=== PATIENT | male | born 1965 | race Caucasian/White ===

== ENCOUNTER → 2017-11-25 | Outpatient (CLI) | payer OTHER ==
[~2017-11-25] MED LIST: AMIT10 PO; ESCI10 PO; HYDACE7.5 PO; NAPR500 PO
== END | disposition home or self-care (01) ==
LOC: LAB 13:44 → LAB SHORT 13:44
DX: L02.91 Cutaneous abscess, unspecified (principal)
CPT/HCPCS: 87070; 87075; 87077; 87147; 87186; 87205

== ENCOUNTER 2020-04-04 19:12 | Observation (INO) | payer OTHER ==
[~2020-04-04] VITALS: Ht 182.9 cm; Wt 121.6 kg
[~2020-04-04 19:12] MED LIST changes: +ATOR20 PO; +MONT10T PO
[2020-04-04 19:53] LABS: BASOPHILS ABSOLUTE AUTO 0.08 K/mm3 (0.00-0.23); BASOPHILS PERCENT AUTO 1 % (0-2); EOSINOPHILS ABSOLUTE AUTO 0.38 K/mm3 (0.00-0.68); EOSINOPHILS PERCENT AUTO 4 % (0-6); Hemoglobin 9.3 g/dL (13.5-17.5); IMMATURE GRAN ABSOLUTE AUTO 0.13 K/mm3 (0.00-0.10); IMMATURE GRAN PERCENT AUTO 1 % (0-1); LYMPHOCYTES ABSOLUTE AUTO 2.18 K/mm3 (0.84-5.20); LYMPHOCYTES PERCENT AUTO 20 % (21-46); MONOCYTES PERCENT AUTO 9 % (4-13); Mean Corpuscular HGB 27.7 pg (26.0-34.0); Mean Corpuscular Volume 89 fL (80-100); Mean Platelet Volume 9.7 fL (9.1-12.4); NEUTROPHILS PERCENT AUTO 65 % (41-73); Platelet Count 513 K/mm3 (150-400); RDW Coefficient Variation 13.2 % (11.7-14.2); RDW Standard Deviation 43.5 fL (35.1-46.3); Red Blood Cell Count 3.36 M/mm3 (4.30-5.90); White Blood Cell Count 10.87 K/mm3 (4.00-11.30)
[2020-04-04 20:21] LABS: Troponin I 0.024 ng/mL (0.000-0.040)
[2020-04-04 20:29] LABS: Alanine Aminotransfer (ALT/SGP 72 U/L (12-78); Albumin, Blood 3.1 g/dL (3.4-5.0); Albumin/Globulin Ratio 0.7 (0.8-1.8); Alk Phos 116 U/L (50-136); Anion Gap 6 mmol/L (6-16); Aspartate Aminotrans (AST/SGOT 31 U/L (12-37); Bilirubin, Total 0.3 mg/dL (0.1-1.0); Blood Urea Nitrogen 14 mg/dL (8-24); Bun/Creatinine Ratio 17.4 (12.0-20.0); CO2, Blood 28 mmol/L (21-32); Calcium, Blood 9.5 mg/dL (8.5-10.1); Chloride, Blood 100 mmol/L (98-108); Globulin, Blood 4.2 g/dL (2.2-4.0); Glomerular Filtration Rate >60 (60-); Glucose, Blood 100 mg/dL (70-99); Potassium, Blood 4.3 mmol/L (3.5-5.5); Sodium, Blood 134 mmol/L (136-145); Total Protein, Blood 7.3 g/dL (6.4-8.2)
[2020-04-05 00:25] LABS: Troponin I 0.021 ng/mL (0.000-0.040)
--- NOTE | 2020-04-05 05:49 | NUR ---
SHIFT SUMMARY PT ARRIVED TO THE UNIT AROUND 0020, DENIED ANY CHEST PAIN, STATED PAIN AT INCISION SITE FROM PREVIOUS OPEN HEART PROCEDURE 2 WEEKS AGO. BP AND HR STABLE ON ARRIVAL AND T/O SHIFT. ON 2LPM VIA NC, O2 SATS IN THE MID 90'S. STATED NOT HAVING SOB, NO SOB WHEN TRANSFERING FROM ER BED TO UNIT BED. PT ABLE TO AMBULATE, STAND-BY ASSIST. HR MONITORING SHOWED SINUS RHYTHM WITH A BBB. LUNGS CLEAR AND MILDLY DIMINISHED IN THE BASES. PT STATED BEING COMFORTABLE T/O THE NIGHT. WILL CONTINUE TO MONITOR UNTIL SHIFT CHANGE.
--- NOTE | 2020-04-05 08:00 | NUR ---
PT LAYING IN BED AWAKE A/OX3, PLEASANT AND COOPERATIVE WITH CARE, FOLLOWS COMMANDS WELL, STATES HE SLEPT PRETTY WELL LAST NIGHT, IS HAVING SOME SURGICAL INCISION PAIN IN HIS CHEST BUT DOESN'T WANT FENTANYL, DIDNT DO ANYTHING FOR HIM, WILL TALK TO ABOUT GETTING HIM SOMETHING PO, LUNGS ARE CLEAR T/O, RESP EVEN AND UNLABORED, NO COUGH NOTED, HRR, TELE IN PLACE RUNNING SR WITH BBB, SEE STRIP, NO EDEMA NOTED, PPP+2, CAP REFILL <3SEC, VS STABLE, AFEBRILE, IV SITE IS CLEAR AND PATENT, BTX4, ABD FLAT SOFT NONTENDER, VOIDS WITHOUT DIFF, SKIN C/W/D, MAEW, JACINTO, CALL LIGHT IN REACH.
[2020-04-05 09:14] LABS: BASOPHILS ABSOLUTE AUTO 0.08 K/mm3 (0.00-0.23); BASOPHILS PERCENT AUTO 1 % (0-2); EOSINOPHILS ABSOLUTE AUTO 0.49 K/mm3 (0.00-0.68); EOSINOPHILS PERCENT AUTO 5 % (0-6); Hemoglobin 8.8 g/dL (13.5-17.5); IMMATURE GRAN ABSOLUTE AUTO 0.11 K/mm3 (0.00-0.10); IMMATURE GRAN PERCENT AUTO 1 % (0-1); LYMPHOCYTES ABSOLUTE AUTO 1.47 K/mm3 (0.84-5.20); LYMPHOCYTES PERCENT AUTO 16 % (21-46); MONOCYTES ABSOLUTE AUTO 0.87 K/mm3 (0.16-1.47); MONOCYTES PERCENT AUTO 9 % (4-13); Mean Corpuscular HGB 27.5 pg (26.0-34.0); Mean Corpuscular HGB Conc 30.3 g/dL (31.5-36.5); Mean Corpuscular Volume 91 fL (80-100); Mean Platelet Volume 9.7 fL (9.1-12.4); NEUTROPHILS ABSOLUTE AUTO 6.46 K/mm3 (1.96-9.15); NEUTROPHILS PERCENT AUTO 68 % (41-73); Platelet Count 407 K/mm3 (150-400); RDW Coefficient Variation 13.2 % (11.7-14.2); White Blood Cell Count 9.48 K/mm3 (4.00-11.30)
[2020-04-05 09:39] LABS: Alanine Aminotransfer (ALT/SGP 62 U/L (12-78); Albumin, Blood 2.7 g/dL (3.4-5.0); Albumin/Globulin Ratio 0.7 (0.8-1.8); Alk Phos 104 U/L (50-136); Anion Gap 5 mmol/L (6-16); Aspartate Aminotrans (AST/SGOT 17 U/L (12-37); Bilirubin, Total 0.5 mg/dL (0.1-1.0); Blood Urea Nitrogen 13 mg/dL (8-24); Bun/Creatinine Ratio 15.8 (12.0-20.0); CO2, Blood 31 mmol/L (21-32); CPK Creatine Kinase 21 U/L (39-308); Calcium, Blood 9.2 mg/dL (8.5-10.1); Chloride, Blood 103 mmol/L (98-108); Creatinine, Blood 0.82 mg/dL (0.60-1.20); Glomerular Filtration Rate >60 (60-); Glucose, Blood 118 mg/dL (70-99); Potassium, Blood 4.3 mmol/L (3.5-5.5); Sodium, Blood 139 mmol/L (136-145); Total Protein, Blood 6.7 g/dL (6.4-8.2)
[2020-04-05 09:41] LABS: Troponin I 0.022 ng/mL (0.000-0.040)
[2020-04-05 12:51] LABS: Hematocrit 29.1 % (37.0-53.0); Hemoglobin 9.2 g/dL (13.5-17.5)
--- NOTE | 2020-04-05 12:53 | NUR ---
CAROLINA IS DOING WELL, NO COMPLAINTS. WAS CONSULTED AND SAW HIM. NO CHANGES AT THIS TIME. CALL LIGHT IN REACH.
[2020-04-05 13:11] LABS: Percent Saturation 11.1 % (20.0-50.0)
--- NOTE | 2020-04-05 14:13 | NUR ---
Echocardiogram completed.
--- NOTE | 2020-04-05 18:13 | NUR ---
NO ACUTE CHANGES THIS SHIFT, HE DOES REPORT INSICION PAIN, WAS GIVEN TWO PERCOCETS TODAY FOR THAT, HE REPORTS NOT HELPING THAT MUCH. WILL CONTINUE TO MONITOR, CALL LIGHT IN REACH.
[2020-04-05] MEDS ORDERED: METO25 PO (18:28)
[2020-04-05] MEDS ORDERED: METF500 PO (18:28)
[2020-04-05] MEDS ORDERED: ASPI81CH PO (18:29)
[2020-04-06 04:32] LABS: Hematocrit 29.4 % (37.0-53.0); Hemoglobin 9.1 g/dL (13.5-17.5)
--- NOTE | 2020-04-06 04:49 | NUR ---
SHIFT SUMMARY PT WAS ASKING QUESTIONS AND EDUCATED ABOUT HIS CARDIAC CONDTION. HE STATED HAVING PAIN IN HIS UPPER CHEST AROUND SURGICAL SITE, STATING AN INCREASED PAIN FROM ECHO EARLIER IN THE DAY. PAIN WAS MANAGED WITH PERSCRIBED PRN MEDICATIONS. PT ON 2LPM VIA NC, O2 SATS IN THE HIGH 90'S WITH NO DROP WHEN AMBULATING. HR AND BP STABLE T/O SHIFT. WILL CONTINUE TO MONITOR UNTIL SHIFT CHANGE.
[2020-04-06 04:50] LABS: Albumin, Blood 2.8 g/dL (3.4-5.0); Anion Gap 5 mmol/L (6-16); Blood Urea Nitrogen 11 mg/dL (8-24); Bun/Creatinine Ratio 14.6 (12.0-20.0); CO2, Blood 34 mmol/L (21-32); Calcium, Blood 9.1 mg/dL (8.5-10.1); Chloride, Blood 98 mmol/L (98-108); Creatinine, Blood 0.76 mg/dL (0.60-1.20); Glomerular Filtration Rate >60 (60-); Glucose, Blood 101 mg/dL (70-99); Phosphorus, Blood 3.7 mg/dL (2.5-4.9); Potassium, Blood 3.6 mmol/L (3.5-5.5); Sodium, Blood 137 mmol/L (136-145)
[2020-04-06] MEDS ORDERED: ACET325 PO (11:46)
[2020-04-06] MEDS ORDERED: FURO20 PO (11:49)
--- NOTE | 2020-04-06 13:39 | NUR ---
IV REMOVED, DISCHARGE PAPERWORK REVIEWED WITH PT. 02 DC'D THIS AM. 98% ON RA.
--- NOTE | 2020-04-06 14:31 | NUR ---
SPOKE WITH PCP'S OFFICE TO ADVISE THAT PT HAD HOME O2 EVAL ORDERED THAT WAS NOT COMPELTE PT LEFT PRIOR TO HAVING DONE. PCP WILL FOLLOW UP.
== END 2020-04-06 12:42 | disposition home or self-care (01) ==
LOC: ER 19:12 → PCU 19:13
PROVIDERS: Emergency Medicine; Family Medicine; ADMIT Internal Medicine
DX: I11.0 Hypertensive heart disease with heart failure (principal); I50.31 Acute diastolic (congestive) heart failure; T82.858A Stenosis of other vascular prosthetic devices, implants and grafts, initial encounter; J96.01 Acute respiratory failure with hypoxia; I44.0 Atrioventricular block, first degree; I44.7 Left bundle-branch block, unspecified; I31.3 Pericardial effusion (noninflammatory); I97.190 Other postprocedural cardiac functional disturbances following cardiac surgery; I48.91 Unspecified atrial fibrillation; I25.10 Atherosclerotic heart disease of native coronary artery without angina pectoris; E78.5 Hyperlipidemia, unspecified; E78.1 Pure hyperglyceridemia; R91.8 Other nonspecific abnormal finding of lung field; E04.1 Nontoxic single thyroid nodule; D64.9 Anemia, unspecified; G89.18 Other acute postprocedural pain; R07.89 Other chest pain; G89.29 Other chronic pain; M54.5 Low back pain; E66.9 Obesity, unspecified; E11.9 Type 2 diabetes mellitus without complications; F41.8 Other specified anxiety disorders; Q25.0 Patent ductus arteriosus; I08.0 Rheumatic disorders of both mitral and aortic valves; Z87.891 Personal history of nicotine dependence; Z79.899 Other long term (current) drug therapy; Z79.51 Long term (current) use of inhaled steroids; Z98.61 Coronary angioplasty status; Z95.2 Presence of prosthetic heart valve; Z68.36 Body mass index [BMI] 36.0-36.9, adult; Y84.0 Cardiac catheterization as the cause of abnormal reaction of the patient, or of later complication, without mention of misadventure at the time of the procedure; Y83.2 Surgical operation with anastomosis, bypass or graft as the cause of abnormal reaction of the patient, or of later complication, without mention of misadventure at the time of the procedure
CPT/HCPCS: 36415; 71046; 80053; 80069; 82550; 82607; 82728; 82746; 83540; 83550; 83880; 84484; 85014; 85018; 85025; 93005; 93010; 93306; 96365; 96372; 96374; 96375; 96376; 99285-25; A9270; G0378; J1650; J1940; J1956; J3010; U0003

== ENCOUNTER 2021-05-25 20:01 | Inpatient (IN) | payer OTHER ==
[~2021-05-25] VITALS: Ht 182.9 cm; Wt 109.7 kg
[~2021-05-25 20:01] MED LIST changes: +ACET325 PO; +ASPI81CH PO; +FURO20 PO; +METF500 PO; +METO25 PO
[2021-05-25 20:25] LABS: BASOPHILS ABSOLUTE AUTO 0.06 K/mm3 (0.00-0.23); BASOPHILS PERCENT AUTO 1 % (0-2); EOSINOPHILS ABSOLUTE AUTO 0.34 K/mm3 (0.00-0.68); EOSINOPHILS PERCENT AUTO 4 % (0-6); Hematocrit 44.3 % (37.0-53.0); Hemoglobin 14.2 g/dL (13.5-17.5); IMMATURE GRAN ABSOLUTE AUTO 0.19 K/mm3 (0.00-0.10); IMMATURE GRAN PERCENT AUTO 3 % (0-1); LYMPHOCYTES ABSOLUTE AUTO 3.33 K/mm3 (0.84-5.20); LYMPHOCYTES PERCENT AUTO 43 % (21-46); MONOCYTES ABSOLUTE AUTO 0.41 K/mm3 (0.16-1.47); MONOCYTES PERCENT AUTO 5 % (4-13); Mean Corpuscular HGB 28.8 pg (26.0-34.0); Mean Corpuscular HGB Conc 32.1 g/dL (31.5-36.5); Mean Corpuscular Volume 90 fL (80-100); Mean Platelet Volume 10.2 fL (9.1-12.4); NEUTROPHILS ABSOLUTE AUTO 3.34 K/mm3 (1.96-9.15); NEUTROPHILS PERCENT AUTO 44 % (41-73); Platelet Count 253 K/mm3 (150-400); RDW Coefficient Variation 12.3 % (11.7-14.2); RDW Standard Deviation 40.1 fL (35.1-46.3); Red Blood Cell Count 4.93 M/mm3 (4.30-5.90); White Blood Cell Count 7.67 K/mm3 (4.00-11.30)
[2021-05-25 20:36] LABS: Alanine Aminotransfer (ALT/SGP 47 U/L (12-78); Albumin, Blood 3.1 g/dL (3.4-5.0); Albumin/Globulin Ratio 0.9 (0.8-1.8); Alk Phos 76 U/L (50-136); Anion Gap 9 mmol/L (6-16); Aspartate Aminotrans (AST/SGOT 51 U/L (12-37); Bilirubin, Total 0.3 mg/dL (0.1-1.0); Blood Urea Nitrogen 13 mg/dL (8-24); CO2, Blood 22 mmol/L (21-32); Calcium, Blood 7.7 mg/dL (8.5-10.1); Chloride, Blood 108 mmol/L (98-108); Creatinine, Blood 0.86 mg/dL (0.60-1.20); Ethanol (Alcohol), Blood, Med <3 mg/dL; Globulin, Blood 3.3 g/dL (2.2-4.0); Glomerular Filtration Rate >60 (60-); Glucose, Blood 209 mg/dL (70-99); Potassium, Blood 3.6 mmol/L (3.5-5.5); Sodium, Blood 139 mmol/L (136-145); Total Protein, Blood 6.4 g/dL (6.4-8.2)
[2021-05-25] MEDS ORDERED: OXYC5 PO (21:21)
[2021-05-25] MEDS ORDERED: METPRE4DP PO (21:22)
[2021-05-25] MEDS ORDERED: TRAM50 PO (21:24)
[2021-05-25] MEDS ORDERED: LORA10ER (21:25)
[2021-05-25] MEDS ORDERED: DEPO-TESTO200 MG/16 IM (21:26)
[2021-05-25 21:33] LABS: Influenza A, PCR NEGATIVE (NEGATIVE); Influenza B, PCR NEGATIVE (NEGATIVE); Resp Syncytial Virus, PCR NEGATIVE (NEGATIVE); SARS-Cov-2 (COVID-19) PCR, MMC NEGATIVE (NEGATIVE)
--- NOTE | 2021-05-26 18:41 | NUR ---
PT ARRIVED TO ROOM AOX4 AND COOPERATIVE OF CARE. PT ABLE TO STAND AND TRANSFER TO BED. PT REPORTS CHEST PAIN RELATED TO CPR CHEST COMPRESSIONS. PT ON 3 L NC AND TOLERATING WELL. NO DISTRESS NOTED CALL LIGHT WITHIN REACH WILL CONTINUE TO MONITOR.
--- NOTE | 2021-05-27 04:10 | NUR ---
SHIFT SUMMARY PT AOX3 AND ON OBS FOR DRUG OVERDOSE. PT C/O CHEST PAIN AND FREQUENT URINATION THIS SHIFT. RESTED SOME AND NOW ON ROOM AIR AT 93%. PT MEDICATED PER EMAR FOR PAIN. DENIES ANY NEEDS AT THE MOMENT AND THIS NURSE WILL CONTINUE TO MONITOR UNTIL REPORT IS GIVEN.
[2021-05-27 06:21] LABS: BASOPHILS ABSOLUTE AUTO 0.05 K/mm3 (0.00-0.23); BASOPHILS PERCENT AUTO 1 % (0-2); EOSINOPHILS ABSOLUTE AUTO 0.37 K/mm3 (0.00-0.68); EOSINOPHILS PERCENT AUTO 4 % (0-6); Hematocrit 41.6 % (37.0-53.0); Hemoglobin 13.6 g/dL (13.5-17.5); IMMATURE GRAN ABSOLUTE AUTO 0.03 K/mm3 (0.00-0.10); IMMATURE GRAN PERCENT AUTO 0 % (0-1); LYMPHOCYTES ABSOLUTE AUTO 1.95 K/mm3 (0.84-5.20); LYMPHOCYTES PERCENT AUTO 23 % (21-46); MONOCYTES ABSOLUTE AUTO 0.72 K/mm3 (0.16-1.47); MONOCYTES PERCENT AUTO 8 % (4-13); Mean Corpuscular HGB 28.5 pg (26.0-34.0); Mean Corpuscular HGB Conc 32.7 g/dL (31.5-36.5); Mean Corpuscular Volume 87 fL (80-100); Mean Platelet Volume 9.9 fL (9.1-12.4); NEUTROPHILS ABSOLUTE AUTO 5.51 K/mm3 (1.96-9.15); NEUTROPHILS PERCENT AUTO 64 % (41-73); Platelet Count 220 K/mm3 (150-400); RDW Coefficient Variation 12.5 % (11.7-14.2); RDW Standard Deviation 39.8 fL (35.1-46.3); Red Blood Cell Count 4.78 M/mm3 (4.30-5.90); White Blood Cell Count 8.63 K/mm3 (4.00-11.30)
[2021-05-27 06:54] LABS: Thyroid Stimulating Hormone 0.341 uIU/mL (0.360-4.800)
[2021-05-27 07:04] LABS: Alanine Aminotransfer (ALT/SGP 37 U/L (12-78); Albumin, Blood 3.3 g/dL (3.4-5.0); Albumin/Globulin Ratio 1.1 (0.8-1.8); Alk Phos 71 U/L (50-136); Anion Gap 8 mmol/L (6-16); Aspartate Aminotrans (AST/SGOT 23 U/L (12-37); Bilirubin, Total 0.9 mg/dL (0.1-1.0); Blood Urea Nitrogen 15 mg/dL (8-24); Bun/Creatinine Ratio 21.6 (12.0-20.0); CO2, Blood 31 mmol/L (21-32); Calcium, Blood 9.2 mg/dL (8.5-10.1); Chloride, Blood 99 mmol/L (98-108); Creatinine, Blood 0.69 mg/dL (0.60-1.20); Globulin, Blood 3.1 g/dL (2.2-4.0); Glomerular Filtration Rate >60 (60-); Glucose, Blood 115 mg/dL (70-99); Potassium, Blood 3.6 mmol/L (3.5-5.5); Sodium, Blood 138 mmol/L (136-145); Total Protein, Blood 6.4 g/dL (6.4-8.2)
[2021-05-27] MEDS ORDERED: AZO CRANBERRY PO (11:08)
[2021-05-27] MEDS ORDERED: DULCOLAX400 MG/5 M PO (11:09)
[2021-05-27] MEDS ORDERED: MONT10T PO (11:09)
[2021-05-27] MEDS ORDERED: LEVO750 PO (11:09)
[2021-05-27] MEDS ORDERED: ONDA4ODT MM (11:10)
--- NOTE | 2021-05-27 13:15 | NUR ---
PT DISCHARGED AT 1300 WITH ALL PAPERWORK REVEIWED AND EDUCATIONAL MATERIAL SENT. PT COLLECTED PERSONAL BELONGINGS AND WAS ESCORTED OUT VIA WHEEL CHAIR BY RN TO N ENTRANCE WITH FAMILY TO TRANSPORT. PT WAS RA AND INDEPENDENT IN ROOM NO DISTRESS NOTED. PT DID HAVE RESIDUAL CHEST PAIN FROM PRIOR CHEST COMPRESSIONS.
== END 2021-05-27 13:07 | disposition home or self-care (01) | DRG 917 ==
LOC: ER 20:01 → ERHOLD 20:02 → MEDS 05-26 17:29 → ENPENDDIS 05-27 10:39 → MEDS 05-27 13:07
PROVIDERS: Emergency Medicine; Family Medicine; ADMIT Internal Medicine
DX: T40.2X1A Poisoning by other opioids, accidental (unintentional), initial encounter (principal); J96.01 Acute respiratory failure with hypoxia; G92.8 Other toxic encephalopathy; I50.33 Acute on chronic diastolic (congestive) heart failure; E78.5 Hyperlipidemia, unspecified; I11.0 Hypertensive heart disease with heart failure; Z20.822 Contact with and (suspected) exposure to COVID-19; Z95.2 Presence of prosthetic heart valve; Z79.899 Other long term (current) drug therapy; Z79.82 Long term (current) use of aspirin; E78.00 Pure hypercholesterolemia, unspecified
CPT/HCPCS: 0241U; 36415; 71045; 80053; 82947; 83735; 84443; 85025; 93005; 93010; 94640; 94760; 94761; 96372; 96374; 96375; 96376; 99285-25; A9270; G0480; J1650; J1940; J1956; J2405

== ENCOUNTER → 2022-02-10 | Outpatient (CLI) | payer OTHER ==
[~2022-02-10] MED LIST changes: +AZO CRANBERRY PO; +DEPO-TESTO200 MG/16 IM; +DULCOLAX400 MG/5 M PO; +LEVO750 PO; +LORA10ER; +METPRE4DP PO; +ONDA4ODT MM; +OXYC5 PO; +TRAM50 PO
[2022-02-10 17:20] LABS: BASOPHILS PERCENT AUTO 1 % (0-2); EOSINOPHILS ABSOLUTE AUTO 0.55 K/mm3 (0.00-0.68); EOSINOPHILS PERCENT AUTO 6 % (0-6); Hematocrit 40.4 % (37.0-53.0); Hemoglobin 13.3 g/dL (13.5-17.5); IMMATURE GRAN ABSOLUTE AUTO 0.09 K/mm3 (0.00-0.10); IMMATURE GRAN PERCENT AUTO 1 % (0-1); LYMPHOCYTES ABSOLUTE AUTO 2.02 K/mm3 (0.84-5.20); LYMPHOCYTES PERCENT AUTO 23 % (21-46); MONOCYTES ABSOLUTE AUTO 0.72 K/mm3 (0.16-1.47); MONOCYTES PERCENT AUTO 8 % (4-13); Mean Corpuscular HGB 28.1 pg (26.0-34.0); Mean Corpuscular HGB Conc 32.9 g/dL (31.5-36.5); Mean Corpuscular Volume 85 fL (80-100); Mean Platelet Volume 9.5 fL (9.1-12.4); NEUTROPHILS ABSOLUTE AUTO 5.45 K/mm3 (1.96-9.15); NEUTROPHILS PERCENT AUTO 61 % (41-73); Platelet Count 453 K/mm3 (150-400); RDW Coefficient Variation 12.8 % (11.7-14.2); RDW Standard Deviation 39.5 fL (35.1-46.3); Red Blood Cell Count 4.73 M/mm3 (4.30-5.90); White Blood Cell Count 8.93 K/mm3 (4.00-11.30)
[2022-02-10 17:29] LABS: Albumin, Blood 3.3 g/dL (3.4-5.0); Albumin/Globulin Ratio 0.7 (0.8-1.8); Bilirubin, Total 0.3 mg/dL (0.1-1.0); Bun/Creatinine Ratio 14.4 (12.0-20.0); Calcium, Blood 9.1 mg/dL (8.5-10.1); Creatinine, Blood 0.97 mg/dL (0.60-1.20); Globulin, Blood 4.8 g/dL (2.2-4.0); Total Protein, Blood 8.1 g/dL (6.4-8.2)
== END | disposition home or self-care (01) ==
LOC: LAB SHORT 17:09
PROVIDERS: Physician Assistant
DX: R07.9 Chest pain, unspecified (principal)
CPT/HCPCS: 80053; 85025; 85379

== ENCOUNTER → 2022-02-12 | Outpatient (CLI) | payer OTHER ==
[2022-02-12 12:57] LABS: BASOPHILS PERCENT AUTO 1 % (0-2); EOSINOPHILS ABSOLUTE AUTO 0.44 K/mm3 (0.00-0.68); EOSINOPHILS PERCENT AUTO 6 % (0-6); Hematocrit 40.5 % (37.0-53.0); Hemoglobin 13.2 g/dL (13.5-17.5); IMMATURE GRAN ABSOLUTE AUTO 0.07 K/mm3 (0.00-0.10); IMMATURE GRAN PERCENT AUTO 1 % (0-1); LYMPHOCYTES ABSOLUTE AUTO 1.65 K/mm3 (0.84-5.20); LYMPHOCYTES PERCENT AUTO 21 % (21-46); MONOCYTES PERCENT AUTO 9 % (4-13); Mean Corpuscular HGB 27.8 pg (26.0-34.0); Mean Corpuscular HGB Conc 32.6 g/dL (31.5-36.5); Mean Corpuscular Volume 85 fL (80-100); Mean Platelet Volume 9.1 fL (9.1-12.4); NEUTROPHILS ABSOLUTE AUTO 5.08 K/mm3 (1.96-9.15); NEUTROPHILS PERCENT AUTO 63 % (41-73); Platelet Count 415 K/mm3 (150-400); RDW Coefficient Variation 12.9 % (11.7-14.2); RDW Standard Deviation 39.6 fL (35.1-46.3); Red Blood Cell Count 4.75 M/mm3 (4.30-5.90); White Blood Cell Count 8.04 K/mm3 (4.00-11.30)
== END | disposition home or self-care (01) ==
LOC: LAB SHORT 12:53
PROVIDERS: Physician Assistant
DX: J18.9 Pneumonia, unspecified organism (principal)
CPT/HCPCS: 85025; 85379

== ENCOUNTER → 2022-06-05 | Outpatient (CLI) | payer OTHER ==
[2022-06-05 17:46] LABS: Bun/Creatinine Ratio 26.1 (12.0-20.0); Calcium, Blood 9.5 mg/dL (8.5-10.1); Creatinine, Blood 0.65 mg/dL (0.60-1.20)
== END | disposition home or self-care (01) ==
LOC: LAB 12:41 → LAB SHORT 12:41
DX: R06.02 Shortness of breath (principal); Z95.2 Presence of prosthetic heart valve
CPT/HCPCS: 36415; 80048; 83880

== ENCOUNTER 2022-10-10 12:25 | Day surgery (SDC) | payer OTHER ==
[~2022-10-10] VITALS: Ht 182.9 cm; Wt 137.5 kg
[2022-10-10] MEDS ORDERED: FISH OIL 1,2001 EAC7 (13:15)
[2022-10-10] MEDS ORDERED: IBUP600 (13:15)
[2022-10-10] MEDS ORDERED: PANT40 (13:15)
--- NOTE | 2022-10-10 15:00 | NUR ---
10/10/22 1500 Crystal Hyman 30ML NS USED TO ELEVATE POLYPS
[2022-10-10 15:31] VITALS: BP 108/66
--- NOTE | 2022-10-10 15:33 | NUR ---
10/10/22 1533 Crystal Hyman PT'S OXYGEN AT 89% UPON ARRIVAL TO STEPDOWN. PLACED ON 3L O2 VIA NC AND SPO2 UP TO 91% PT WITH WHEEZING T/O. ORDER FROM DR OMAIRA SANCHEZ FOR DUONEB AND DUONEB ADMINISTERED.
== END 2022-10-10 16:17 | disposition home or self-care (01) ==
LOC: ORSCSDS 12:25
PROVIDERS: Internal Medicine Gastroenterology
PROC: 0DBH8ZX Excision of Cecum, Via Natural or Artificial Opening Endoscopic, Diagnostic (ICD-10-PCS; principal; 2022-10-10 13:45)
PROC: 0DBP8ZX Excision of Rectum, Via Natural or Artificial Opening Endoscopic, Diagnostic (ICD-10-PCS; principal; 2022-10-10 13:45)
PROC: 0DBK8ZX Excision of Ascending Colon, Via Natural or Artificial Opening Endoscopic, Diagnostic (ICD-10-PCS; principal; 2022-10-10 13:45)
PROC: 0DBL8ZX Excision of Transverse Colon, Via Natural or Artificial Opening Endoscopic, Diagnostic (ICD-10-PCS; principal; 2022-10-10 13:45)
DX: Z12.11 Encounter for screening for malignant neoplasm of colon (principal); Z83.71 Family history of colonic polyps; D12.3 Benign neoplasm of transverse colon; D12.0 Benign neoplasm of cecum; D12.2 Benign neoplasm of ascending colon; K62.1 Rectal polyp; K64.4 Residual hemorrhoidal skin tags; E78.5 Hyperlipidemia, unspecified; E11.9 Type 2 diabetes mellitus without complications; I10 Essential (primary) hypertension; G47.33 Obstructive sleep apnea (adult) (pediatric); K21.9 Gastro-esophageal reflux disease without esophagitis; Z87.891 Personal history of nicotine dependence; Z79.899 Other long term (current) drug therapy; Z79.82 Long term (current) use of aspirin; Z79.84 Long term (current) use of oral hypoglycemic drugs; E66.01 Morbid (severe) obesity due to excess calories; Z68.38 Body mass index [BMI] 38.0-38.9, adult; F90.9 Attention-deficit hyperactivity disorder, unspecified type
CPT/HCPCS: 82947; 88305; J2704; J7120

== ENCOUNTER → 2024-09-27 | Outpatient (CLI) | payer OTHER ==
[~2024-09-27] MED LIST changes: +FISH OIL 1,2001 EAC7; +IBUP600; +PANT40
[2024-09-27 20:28] LABS: Microalb/Creat Ratio UR, Rand 63.298 mg/g (0.000-30.000)
[2024-09-28 01:42] LABS: Adenovirus Not Detected (NOT DETECT); Bordetella pertussis Not Detected (NOT DETECT); Chlamydophila pneumoniae Not Detected (NOT DETECT); Coronavirus 229E Not Detected (NOT DETECT); Coronavirus HKU1 Not Detected (NOT DETECT); Coronavirus NL63 Detected (NOT DETECT); Coronavirus OC43 Not Detected (NOT DETECT); Human Metapneumovirus Not Detected (NOT DETECT); Human Rhinovirus/Enterovirus Not Detected (NOT DETECT); Influenza A/2009-H1 Not Detected (NOT DETECT); Influenza A/H1 Not Detected (NOT DETECT); Influenza A/H3 Not Detected (NOT DETECT); Influenza B Not Detected (NOT DETECT); Mycoplasma pneumoniae Not Detected (NOT DETECT); Parainfluenza Virus 1 Not Detected (NOT DETECT); Parainfluenza Virus 2 Not Detected (NOT DETECT); Parainfluenza Virus 3 Not Detected (NOT DETECT); Parainfluenza Virus 4 Not Detected (NOT DETECT); Respiratory Syncytial Virus Not Detected (NOT DETECT); SARS-Cov-2 (COVID-19), BioFire Not Detected (NOT DETECT)
== END ==
LOC: LAB SHORT 19:06 → LAB 19:06
PROVIDERS: Student in an Organized Health Care Education/Training Program
DX: J06.9 Acute upper respiratory infection, unspecified (principal)
CPT/HCPCS: 0202U; 82043; 82570

== ENCOUNTER 2024-12-21 12:43 | Day surgery (SDC) | payer OTHER ==
[~2024-12-21] VITALS: Ht 182.9 cm; Wt 120.0 kg
[~2024-12-21 12:43] MED LIST changes: +Lactated Ringer's 1,000 ML IV ONE; +propofoL 60 ML IV ONE
[2024-12-21] MEDS ORDERED: Ventolin5 MG/1 ML (13:45)
[2024-12-21] MEDS ORDERED: Lactated Ringer's 1,000 ML IV ONE (14:27)
[2024-12-21 16:04] VITALS: BP 134/94
== END 2024-12-21 16:19 | disposition home or self-care (01) ==
LOC: ORSCSDS 12:43
PROVIDERS: Specialist
PROC: 0DBH8ZX Excision of Cecum, Via Natural or Artificial Opening Endoscopic, Diagnostic (ICD-10-PCS; principal; 2024-12-21 14:00)
PROC: 0DBN8ZX Excision of Sigmoid Colon, Via Natural or Artificial Opening Endoscopic, Diagnostic (ICD-10-PCS; principal; 2024-12-21 14:00)
DX: Z12.11 Encounter for screening for malignant neoplasm of colon (principal); Z86.0101 Personal history of adenomatous and serrated colon polyps; D12.5 Benign neoplasm of sigmoid colon; K63.5 Polyp of colon; K64.8 Other hemorrhoids; K64.4 Residual hemorrhoidal skin tags; K57.30 Diverticulosis of large intestine without perforation or abscess without bleeding; Z83.719 Family history of colon polyps, unspecified; E78.5 Hyperlipidemia, unspecified; I10 Essential (primary) hypertension; I25.10 Atherosclerotic heart disease of native coronary artery without angina pectoris; G47.33 Obstructive sleep apnea (adult) (pediatric); Z79.84 Long term (current) use of oral hypoglycemic drugs; Z79.899 Other long term (current) drug therapy; Z79.82 Long term (current) use of aspirin; E66.9 Obesity, unspecified; Z68.35 Body mass index [BMI] 35.0-35.9, adult
CPT/HCPCS: 82947; 88305; J2704; J7120

== ENCOUNTER 2024-12-27 15:53 | Inpatient (IN) | payer OTHER ==
[~2024-12-27] VITALS: Ht 182.9 cm; Wt 120.0 kg
[~2024-12-27 15:53] MED LIST changes: -Lactated Ringer's 1,000 ML IV ONE; +Ventolin5 MG/1 ML INH; -propofoL 60 ML IV ONE
[2024-12-27] MEDS ORDERED: Ondansetron HCl 2 MG / ML 2ML Vial IV ONE (16:15)
[2024-12-27] MEDS ORDERED: Ipratropium/Albuterol SulF 2.5-0.5MG/3 ML Amp INH ONE (16:15)
[2024-12-27] MEDS ORDERED: NS 1,000 ML IV SCH (16:15)
[2024-12-27 16:44] LABS: BASOPHILS ABSOLUTE AUTO 0.07 K/mm3 (0.00-0.23); BASOPHILS PERCENT AUTO 1 % (0-2); EOSINOPHILS ABSOLUTE AUTO 0.02 K/mm3 (0.00-0.68); EOSINOPHILS PERCENT AUTO 0 % (0-6); Hematocrit 47.7 % (37.0-53.0); Hemoglobin 15.0 g/dL (13.5-17.5); IMMATURE GRAN ABSOLUTE AUTO 0.13 K/mm3 (0.00-0.10); IMMATURE GRAN PERCENT AUTO 1 % (0-1); LYMPHOCYTES ABSOLUTE AUTO 1.20 K/mm3 (0.84-5.20); LYMPHOCYTES PERCENT AUTO 8 % (21-46); MONOCYTES ABSOLUTE AUTO 0.89 K/mm3 (0.16-1.47); MONOCYTES PERCENT AUTO 6 % (4-13); Mean Corpuscular HGB Conc 31.4 g/dL (31.5-36.5); Mean Corpuscular Volume 85 fL (80-100); NEUTROPHILS ABSOLUTE AUTO 13.17 K/mm3 (1.96-9.15); NEUTROPHILS PERCENT AUTO 85 % (41-73); NRBC ABSOLUTE 0.00 K/mm3 (0.00-0.02); NRBC Auto 0.0 /100 WBC (0.0-0.2); Platelet Count 351 K/mm3 (150-400); RDW Coefficient Variation 15.0 % (11.7-14.2); RDW Standard Deviation 46.8 fL (35.1-46.3)
[2024-12-27 17:15] LABS: Alanine Aminotransfer (ALT/SGP 21.0 U/L (12-78); Albumin, Blood 3.1 g/dL (3.4-5.0); Albumin/Globulin Ratio 0.6 (0.8-1.8); Anion Gap 8.0 mmol/L (3-11); Aspartate Aminotrans (AST/SGOT 17.0 U/L (12-37); Bilirubin, Total 0.6 mg/dL (0.1-1.0); Blood Urea Nitrogen 17.0 mg/dL (8-24); CO2, Blood 29.0 mmol/L (21-32); Calcium, Blood 9.3 mg/dL (8.5-10.1); Chloride, Blood 99.0 mmol/L (98-108); Creatinine, Blood 1.08 mg/dL (0.60-1.20); Globulin, Blood 4.8 g/dL (2.2-4.0); Glucose, Blood 161.0 mg/dL (70-99); Potassium, Blood 4.0 mmol/L (3.5-5.5); Sodium, Blood 132.0 mmol/L (136-145); Total Protein, Blood 7.9 g/dL (6.4-8.2)
[2024-12-27 17:30] LABS: Influenza A, PCR NEGATIVE (NEGATIVE); Influenza B, PCR NEGATIVE (NEGATIVE); Resp Syncytial Virus, PCR NEGATIVE (NEGATIVE); SARS-Cov-2 (COVID-19) PCR, MMC NEGATIVE (NEGATIVE)
[2024-12-27] MEDS ORDERED: CefTRIAXone Sodium 2,000 MG in NS 100 ML IV ONE (18:35)
[2024-12-27] MEDS ORDERED: Albuterol 2.5 MG/3 ML VIAL INH PRN (19:35)
[2024-12-27] MEDS ORDERED: Ondansetron HCl 2 MG / ML 2ML Vial IV PRN (19:40)
[2024-12-27] MEDS ORDERED: Guaifenesin/Dextromethorphan Syrup 5 ML UDC PO PRN (19:40)
[2024-12-27] MEDS ORDERED: Ipratropium/Albuterol SulF 2.5-0.5MG/3 ML Amp INH SCH (19:45)
[2024-12-27] MEDS ORDERED: Guaifenesin/Dextromethorphan Syrup 5 ML UDC PO ONE (20:00)
[2024-12-27] MEDS ORDERED: NS 1,000 ML IV ONE (20:00)
[2024-12-27] MEDS ORDERED: Ketorolac Tromethamine 15mg Vial IV PRN (20:30)
[2024-12-27 20:49] LABS: U Amphetamine Screen Not Detected; U Barbituate Screen Not Detected; U Benzodiazapine Screen DETECTED; U Buprenorphine Screen Not Detected; U Cannabinoids Screen Not Detected; U Cocaine Screen Not Detected; U Methadone Screen Not Detected; U Methamphetamine Screen DETECTED; U Opiates Screen Not Detected; U Oxycodone Screen Not Detected; U Phencyclidine Screen Not Detected
[2024-12-27] MEDS ORDERED: Lactobacil 2-S.Thermo-Bifido 1 1 Cap PO SCH (21:00)
[2024-12-27] MEDS ORDERED: Insulin Human Lispro 100 Units/ML 3ML Syringe SC SCH (21:00)
[2024-12-27] MEDS ORDERED: Diazepam 5 MG / ML 2ML SYR IV PRN (21:40)
[2024-12-27 23:00] VITALS: BP 125/86
[2024-12-27 23:20] LABS: pH Blood Arterial 7.42 (7.35-7.45)
[2024-12-28 03:53] VITALS: BP 112/61
[2024-12-28 04:10] LABS: Hematocrit 43.7 % (37.0-53.0); Hemoglobin 13.9 g/dL (13.5-17.5); Mean Corpuscular HGB Conc 31.8 g/dL (31.5-36.5); Mean Corpuscular Volume 85 fL (80-100); NRBC ABSOLUTE 0.00 K/mm3 (0.00-0.02); NRBC Auto 0.0 /100 WBC (0.0-0.2); Platelet Count 283 K/mm3 (150-400); RDW Coefficient Variation 15.1 % (11.7-14.2); RDW Standard Deviation 46.4 fL (35.1-46.3)
[2024-12-28 04:33] LABS: BAND PERCENT MAN 22 % (0-8); BASOPHILS ABSOLUTE MAN 0.16 K/mm3 (0.00-0.23); BASOPHILS PERCENT MAN 1 % (0-2); EOSINOPHILS ABSOLUTE MAN 0.00 K/mm3 (0.00-0.68); EOSINOPHILS PERCENT MAN 0 % (0-6); LYMPHOCYTES ABSOLUTE MAN 0.16 K/mm3 (0.84-5.20); LYMPHOCYTES PERCENT MAN 1 % (21-46); MONOCYTES ABSOLUTE MAN 0.84 K/mm3 (0.16-1.47); MONOCYTES PERCENT MAN 5 % (4-13); NEUTROPHILS ABSOLUTE MAN 15.70 K/mm3 (1.96-9.15); SEG NEUTROPHILS PERCENT MAN 71 % (41-73)
[2024-12-28 04:42] LABS: Alanine Aminotransfer (ALT/SGP 20.0 U/L (12-78); Albumin, Blood 2.7 g/dL (3.4-5.0); Albumin/Globulin Ratio 0.6 (0.8-1.8); Anion Gap 11.0 mmol/L (3-11); Aspartate Aminotrans (AST/SGOT 20.0 U/L (12-37); Bilirubin, Total 0.6 mg/dL (0.1-1.0); Blood Urea Nitrogen 12.0 mg/dL (8-24); CO2, Blood 25.0 mmol/L (21-32); Calcium, Blood 8.0 mg/dL (8.5-10.1); Chloride, Blood 98.0 mmol/L (98-108); Creatinine, Blood 0.79 mg/dL (0.60-1.20); Globulin, Blood 4.5 g/dL (2.2-4.0); Glucose, Blood 244.0 mg/dL (70-99); Potassium, Blood 4.2 mmol/L (3.5-5.5); Sodium, Blood 130.0 mmol/L (136-145); Total Protein, Blood 7.2 g/dL (6.4-8.2)
--- NOTE | 2024-12-28 05:46 | NUR ---
SHIFT SUMMARY PT ALERT AND ORIENTED X 4. PT PLACED ON BIPAP IN ED FOR SOB AND DECREASED O2 SATS. PT'S O2 SATS ABOVE 90% ON BIPAP. PT DENIES SOB. PT'S RESPIRATIONS IMPROVED ON BIPAP. PT TRANSITIONED TO NC 6L. WILL CONTINUE TO MONITOR. PT SR-ST ON MONITOR WITH HR 80S-100S. PT WITH ADEQUATE URINE OUTPUT. VSS. DENIES PAIN. PT RESTED WELL THIS SHIFT. GOAL IS TO CONTINUE TO WEAN OXYGEN.
--- NOTE | 2024-12-28 07:32 | NUR ---
ASSUMPTION NOTE: THIS RN TO ASSUME CARE OF PT. PATIENT IS AWAKE IN BED. VITAL SIGNS STABLE AND PT JUST NEEDING COVERS REDONE. PT HAS CALL LGIHT WITHIN REACH, BED IN LOWEST POSITION & STATING NOTHING ELSE IS NEEDED AT THIS TIME.
[2024-12-28 07:33] VITALS: BP 128/88
[2024-12-28] MEDS ORDERED: Polyethylene Glycol 3350 17 gm PO PRN (08:05)
[2024-12-28] MEDS ORDERED: Enoxaparin 40 MG/0.4 ML SYR SC SCH (09:00)
--- NOTE | 2024-12-28 09:19 | NUR ---
MD ROUNDED: MD ROUNDED AND PLAN CONTINUES TO BE GIVE ANTIBIOTICS AND FLUIDS. ECHO IS ORDERED PENDING THEM TO COME.
[2024-12-28 10:59] VITALS: BP 113/89
--- NOTE | 2024-12-28 11:28 | NUR ---
MD CONTACTED: THIS RN CONTACTED MD REGARDING PT'S BLOOD SUGAR BEING ELEVATED AT 376, 5 UNITS TO BE GIVEN PER EMAR. MD TO LOOK AT CHART AND WILL ADD MORE IF NEEDED.
[2024-12-28 15:14] VITALS: BP 123/92
[2024-12-28] MEDS ORDERED: Insulin Human Lispro 100 Units/ML 3ML Syringe SC SCH (16:30)
[2024-12-28] MEDS ORDERED: Insulin NPH 100 Unit / ML 10ML Vial SC SCH (16:30)
--- NOTE | 2024-12-28 16:59 | NUR ---
SHIFT SUMMARY: PATIENT IS ALERT AND ORIETNED X4 & COOPERATIVE WITH HIS CARE, IS ABLE TO MAKE NEEDS KNOWN & USES CALL LIGHT APPROPRIATELY. PATIENT SATTING >92% ON EITHER BIPAP OR NASAL CANNULA 4-6LITERS AT TIMES. PT WAS COVERED WITH INSULIN THROUGHOUT SHIFT DUE TO HIGH BLOOD SUGAR READINGS. MD DID CHANGE PT TO MEDIUM SLIDING SCALE AND ADDED REGULAR INSULIN,SEE EMAR FOR MORE INFORMATION. ECHO WAS DONE SEE RESULTS IN CHART. & FAMILY AT BEDSIDE THROUGHOUT THE SHIFT. PT CONTINUES TO USE FLUTTER VALVE,GET ANTIBIOTICS & WEARING THE BIPAP. PLAN WILL BE TO CONTINUE TO DO THESE THINGS & MONITOR FOR PROGRESS. PT HAS CALL LIGHT WITHIN REACH, BED IN LOWEST POSITION & STATING NOTHING ELESE IS NEEDED AT THIS TIME.
[2024-12-28 19:27] VITALS: BP 124/90
[2024-12-28] MEDS ORDERED: CefTRIAXone Sodium 1,000 MG in NS 100 ML IV SCH (20:00)
[2024-12-28] MEDS ORDERED: Docusate Sodium/Senna 1 Tab PO SCH (21:00)
[2024-12-28 23:02] VITALS: BP 145/97
[2024-12-29 03:49] VITALS: BP 101/66
[2024-12-29 04:00] LABS: Hematocrit 41.1 % (37.0-53.0); Hemoglobin 13.0 g/dL (13.5-17.5); Mean Corpuscular HGB Conc 31.6 g/dL (31.5-36.5); Mean Corpuscular Volume 85 fL (80-100); NRBC ABSOLUTE 0.00 K/mm3 (0.00-0.02); NRBC Auto 0.0 /100 WBC (0.0-0.2); Platelet Count 312 K/mm3 (150-400); RDW Coefficient Variation 15.2 % (11.7-14.2); RDW Standard Deviation 47.7 fL (35.1-46.3)
[2024-12-29 04:23] LABS: Albumin, Blood 2.6 g/dL (3.4-5.0); Anion Gap 8 mmol/L (3-11); Blood Urea Nitrogen 22 mg/dL (8-24); CO2, Blood 30 mmol/L (21-32); Calcium, Blood 8.9 mg/dL (8.5-10.1); Chloride, Blood 99 mmol/L (98-108); Creatinine, Blood 0.77 mg/dL (0.60-1.20); Glucose, Blood 253 mg/dL (70-99); Magnesium, Blood 2.3 mg/dL (1.6-2.4); Phosphorus, Blood 1.8 mg/dL (2.5-4.9); Potassium, Blood 3.6 mmol/L (3.5-5.5); Sodium, Blood 133 mmol/L (136-145)
--- NOTE | 2024-12-29 05:21 | NUR ---
SHIFT SUMMARY PT ALERT AND ORIENTED X 4. ON 9L HFNC AND BIPAP WHEN SLEEPING. TOLERATING WELL. ONE EPISODE OF COUGHING THAT CAUSE SOB, IMPROVED WITH PRNS AND BIPAP PLACEMENT. PT HR 80S NSR. NO C/O OF CHEST PAIN/PRESSURE. PT WITH ADEQUATE URINE OUTPUT. CURRENTLY RECIEVING IV ABX AND STEROIDS. PT DENIES PAIN THIS SHIFT. BLOOD SUGARS IMPROVING. VSS.
[2024-12-29 07:46] VITALS: BP 126/85
[2024-12-29] MEDS ORDERED: Potassium Phosphate Dibasic 30 MM in Dextrose 5% 500 ML IV ONE (08:50)
--- NOTE | 2024-12-29 08:51 | NUR ---
MD ROUNDED: HOSPITALIST ROUNDED ON PT WAS AWARE THAT PT PHOSPOROUS WAS LOW AND GAVE VERBAL ORDER TO ADD KPHOS AND SPUTUM CULURE. PT AWARE LASIX DOSE WAS INCREASED TO BID. PLAN CONTINUES TO BE IV ANTIBIOTICS,GET OFF WATER. WILL LOOK AT DISCHARGE WITHIN A COUPLE OF DAYS
[2024-12-29] MEDS ORDERED: DULoxetine HCL 60 MG Capsule DR PO SCH (09:00)
--- NOTE | 2024-12-29 11:36 | NUR ---
MD CONTACTED: THIS RN CONTACTED MD REGARDING PT'S BLOOD SUGAR OF 392. PER MEDIUM SLIDING SCALE TO GIVEN 10UNITS OF KWIK PEN. MD TO ADD MORE OF REGULAR INSULIN, AWAITING ORDERS.
[2024-12-29] MEDS ORDERED: Insulin NPH 100 Unit / ML 10ML Vial SC STA (12:11)
[2024-12-29 13:04] VITALS: BP 124/100
--- NOTE | 2024-12-29 17:06 | NUR ---
SHIFT SUMMARY: PATIENT IS ALERT AND ORIENTED X4 & COOPERATIVE WITH HIS CARE, IS ABLE TO MAKE NEEDS KNOWN & USES CALL LIGHT APPROPRIATELY. PATIENT SATTING >92% ON 4-6LITERS VIA HEATED HIGH FLOW. PATIENT WEARS BIPAP AT 14/7 AT 50%. USING FLUTTER VALVE AND RT FOLLOWING WITH SCHEDULED BREATHING TREATMENTS. ON TELE SHOWING SINUS TO SINUS TACH WITH RATE 90-100. PATIENT WAS COVERED WITH INSULIN FOR ELEVATED BLOOD SUGARS THROUGHOUT SHIFT. FAMILY CAME TO BEDSIDE THROUGHOUT SHIFT. PT WAS ABLE TO SIT UP IN THE CHAIR FOR MEALS TODAY. PHOSPHOROUS WAS REPLACED AND CONTINUING TO GET IV ANTIBIOTICS. WILL BE LOOKING TO DISCAHRGE WITHIN A FEW DAYS. PT IS EATING DINNER, HAS CALL LIGHT WITHIN REACH, BED IN LOWEST POSITION & STATING NOTHING ELSE IS NEEDED AT THIS TIME.
[2024-12-29 17:18] VITALS: BP 137/89
[2024-12-29 19:45] VITALS: BP 133/94
[2024-12-29] MEDS ORDERED: Insulin Human Lispro 100 Units/ML 3ML Syringe SC ONE (20:00)
[2024-12-29 23:10] VITALS: BP 129/80
[2024-12-30] VITALS (8 sets, daily range): BP systolic 130–133; BP diastolic 85–99
[2024-12-30 04:43] LABS: Anion Gap 6.0 mmol/L (3-11); Blood Urea Nitrogen 29.0 mg/dL (8-24); CO2, Blood 33.0 mmol/L (21-32); Calcium, Blood 8.9 mg/dL (8.5-10.1); Chloride, Blood 98.0 mmol/L (98-108); Creatinine, Blood 0.77 mg/dL (0.60-1.20); Glucose, Blood 236.0 mg/dL (70-99); Potassium, Blood 3.8 mmol/L (3.5-5.5); Sodium, Blood 133.0 mmol/L (136-145)
--- NOTE | 2024-12-30 05:00 | NUR ---
SHIFT SUMMARY NO ACUTE CHANGES THIS SHIFT. PT ALERT AND ORIENTED X 4. PT ON 6L NC AND THEN TRANSITIONED TO BIPAP FOR SLEEP. PT TOLERATED WELL. PT WITH OCCASIONAL HACKING COUGH, NON PRODUCITVE SO UNABLE TO OBTAIN SPUTUM CULTURE. PT IN NSR WITH HR 80S. DENIES CP/PRESSURE. PT WITH ADEQUATE URINE OUTPUT. GLUCOSE AT HS WAS 349, ADDITIONAL ONE TIME DOSE OF INSULIN GIVEN (4 UNITS). IMPROVED ON AM LABS. PT DOING WELL OVERALL, CONTINUINING TO TRY TO WEAN OXYGEN.
[2024-12-30] MEDS ORDERED: Insulin NPH 10 Unit/0.1ML (Single Dose) SC SCH ×2 (08:25→16:30)
[2024-12-30] MEDS ORDERED: Insulin NPH 100 Unit / ML 10ML Vial SC SCH (17:32)
--- NOTE | 2024-12-30 18:16 | NUR ---
PT SUMMARY; NO ACUTE CHANGE FOR THE SHIFT. PT HAS BEEN ON 6L OF O2 T/O SHIFT, BIPAP AT BEDSIDE NEEDED. SATS KEPT ABOVE 90%. PT HAS BEEN RESTING TIL THIS EARLY AFTERNOON COMPLAINED OF NOT GETTING MUCH SLEEP LAST NIGHT. PT RESTARTED BACK ON STEROIDS INSULIN DOSE WAS ADJUSTED. PT HAS BEEN CALLING APPROPRIATELY AND ABLE TO MAKE NEEDS KNOWN, VITALS HAS BEEN STABLE. FAMILY CAME IN TO VISIT. AMBULATES TO THE BATHROOM 1PA. WILL REPORT TO ONCOMING SHIFT
[2024-12-31 03:29] VITALS: BP 139/87
--- NOTE | 2024-12-31 04:18 | NUR ---
SHIFT SUMMARY NO ACUTE CHANGES THIS SHIFT. PT ON 6L NC WHEN AWAKE AND TOLERATING BIPAP AT NIGHT. PT DENIES SOB. IMPROVEMENT IN COUGH. PT NSR WITH HR IN 80S. VSS. DENIES PAIN. ADEQUATE URINE OUTPUT. MONITORING GLUCOSE LEVEL. RECEIVING IV STEROIDS AND ABX.
[2024-12-31 04:51] LABS: Anion Gap 8.0 mmol/L (3-11); Blood Urea Nitrogen 27.0 mg/dL (8-24); CO2, Blood 32.0 mmol/L (21-32); Calcium, Blood 8.9 mg/dL (8.5-10.1); Chloride, Blood 98.0 mmol/L (98-108); Creatinine, Blood 0.78 mg/dL (0.60-1.20); Glucose, Blood 279.0 mg/dL (70-99); Potassium, Blood 4.2 mmol/L (3.5-5.5); Sodium, Blood 134.0 mmol/L (136-145)
[2024-12-31 07:49] VITALS: BP 145/101
[2024-12-31] MEDS ORDERED: Insulin NPH 10 Unit/0.1ML (Single Dose) SC SCH (08:00)
[2024-12-31] MEDS ORDERED: Insulin NPH 100 Unit / ML 10ML Vial SC SCH (09:00)
--- NOTE | 2024-12-31 11:11 | NUR ---
AM NOTE: PATIENT ALERT AND ORIENTED X4. UP WITH 1 PERSON ASSIST. WEARING BIPAP THIS AM, TRANSITIONED BACK TO NASAL CANNULA AND WEARING 6L, SATING ABOVE 95%. EVEN AND UNLABORED RESPIRATIONS AT REST. SOB WITH EXCERTION. LUNG SOUNDS CLEAR AND DIM IN BASES. TELE SHOWING SR WITH HR 70-80'S. DENIES CHEST PAIN/PRESSURE/PALPITATIONS. NO EDEMA NOTED. IV SALINE LOCKED AT THIS TIME. BOWEL TONES PRESENT. TOLERATING PO DIET. ACHS BLOOD SUGAR CHECKS. UP TO BATHROOM WITH 1 PERSON ASSIST AND USING URINAL IND. DR. MCDERMOTT TO BEDSIDE THIS AM AND THIS RN PRESENT FOR MD ROUNDING. NO NEW ORDERS FOR THIS RN TO PLACE. CALL LIGHT IN REACH. DENIES NEEDS.
[2024-12-31 11:52] VITALS: BP 128/96
--- NOTE | 2024-12-31 13:18 | NUR ---
PATIENT TITRATED TO 2L NASAL CANNULA THIS AFTERNOON AND TOLERATING WELL. VITAL SIGNS STABLE. DENIES NEEDS AT THIS TIME. CALL LIGHT IN REACH.
[2024-12-31 15:59] VITALS: BP 141/104
--- NOTE | 2024-12-31 19:37 | NUR ---
NO ACUTE CHANGES. VITAL SIGNS STABLE. SINUS RHYTHM WITH HR 90'S. WEARING 1L NASAL CANNULA. BIPAP ON STANDBY. FAMILY IN TO VISIT THIS AFTERNOON AND UPDATED BY THIS RN. TOLERATING PO DIET. USING URINAL IND. REPORTED OFF TO [facility]. CALL LIGHT IN REACH.
[2024-12-31 21:03] VITALS: BP 139/89
[2025-01-01 00:31] VITALS: BP 104/71; BP 129/80
[2025-01-01 04:23] LABS: Anion Gap 8.0 mmol/L (3-11); Blood Urea Nitrogen 32.0 mg/dL (8-24); CO2, Blood 32.0 mmol/L (21-32); Calcium, Blood 9.7 mg/dL (8.5-10.1); Chloride, Blood 97.0 mmol/L (98-108); Creatinine, Blood 0.77 mg/dL (0.60-1.20); Glucose, Blood 276.0 mg/dL (70-99); Potassium, Blood 4.4 mmol/L (3.5-5.5); Sodium, Blood 133.0 mmol/L (136-145)
[2025-01-01 04:40] VITALS: BP 118/82
--- NOTE | 2025-01-01 06:35 | NUR ---
PT MONITORED THROUGH THE SHIFT.NO EVENTS NOTED OVERNIGHT.PT USED THE CPAP WHILE SLEEPING,STATES THAT HE IS ABLE TO TOLERATE THE CPAP PROVIDED AT THE HOSPITAL BETTER THAN THE ONE HE HAS AT HOME.PT HAS BEEN USING THE URINAL AND HAD GREAT OUTPUT.PT DENIES PAIN,DENIES NEEDS THIS MORNING.CALL LIGHT AND PT'S ITEMS WITHIN REACH.MONITORING ONGOING PER CAREPLAN.
[2025-01-01 07:25] VITALS: BP 135/97
--- NOTE | 2025-01-01 10:08 | NUR ---
AM NOTE: PATIENT ALERT AND ORIENTED X4. DENIES PAIN. UP WITH ONE PERSON. RECLINER SET UP THIS AM AND MOVEMENT ENCOURAGED WITH STAFF ASSIST. WEARING BIPAP THIS AM AND TITRATED TO 1L NASAL CANNULA WHEN AWAKE. SOB ON EXCERTION. DENIES SOB AT REST. LUNG SOUNDS CLEAR WITH DIMINISHED CRACKLES IN BASES. NO COUGH NOTED. TELE SHOWING SR WITH HR 80'S. DENIES CHEST PAIN/PRESSURE/PALPITATIONS. DR. MCDERMOTT TO BEDSIDE THIS AM AND PATIENT MEDICAL STATUS NO TELE. TELE DISCONTINUED. BOWEL TONES PRESENT. TOLERATING PO DIET. DENIES ABDOMINAL PAIN/NAUSEA. IV LASIX GIVEN THIS AM. USING URINAL. STRICT INTAKE AND OUTPUT. SKIN C/D/I. CALL LIGHT IN REACH. DENIES NEEDS AT THIS TIME.
[2025-01-01 11:45] VITALS: BP 130/97
[2025-01-01 15:14] VITALS: BP 136/97
--- NOTE | 2025-01-01 17:55 | NUR ---
TRANSFER: TRANSFER TO ROOM 324 WITH ALL PERSONAL BELONGINGS VIA WHEELCHAIR. REPORTED OFF TO MED FLOOR RN. NO ACUTE CHANGES. VITAL SIGNS REMAINS STABLE. ON 1L NASAL CANNULA. BIPAP TAKEN WITH PATIENT ON TRANSFER. AT BEDSIDE AND UPDATED ON PLAN OF CARE.
--- NOTE | 2025-01-01 18:16 | NUR ---
DAY SUMMARY PCU XFER, NO ACUTE CHANGES SINCE ASSUMING CARE, DENIES PAIN, WATCHING TV AT THIS TIME, CALL LIGHT IN REACH, WILL CONT TO MONITOR
[2025-01-01 19:15] VITALS: BP 119/81
--- NOTE | 2025-01-02 03:02 | NUR ---
SHIFT SUMMARY: AOX4. VSS. DENIED ANY PAIN OR DIFFICULTY BREATHING. PT IS CURRENTLY ON 2L O2 WHILE AWAKE AND ON BiPAP WHILE ASLEEP. MAINTAINING SpO2 > 92%. CALL LIGHT IS WITHIN REACH. BED IS LOW AND LOCKED.
[2025-01-02 04:35] VITALS: BP 131/90
[2025-01-02 07:48] VITALS: BP 118/89
[2025-01-02 12:13] LABS: Anion Gap 7.0 mmol/L (3-11); Blood Urea Nitrogen 38.0 mg/dL (8-24); CO2, Blood 33.0 mmol/L (21-32); Calcium, Blood 9.8 mg/dL (8.5-10.1); Chloride, Blood 98.0 mmol/L (98-108); Creatinine, Blood 0.78 mg/dL (0.60-1.20); Glucose, Blood 161.0 mg/dL (70-99); Potassium, Blood 4.0 mmol/L (3.5-5.5); Sodium, Blood 134.0 mmol/L (136-145)
[2025-01-02] MEDS ORDERED: FISH OIL 1,0001 EA10 PO (14:20)
[2025-01-02] MEDS ORDERED: PANT20 PO (14:21)
[2025-01-02] MEDS ORDERED: CYMBALTA60 M1 PO (14:22)
[2025-01-02] MEDS ORDERED: VISBIOME 112.51 EACH PO (14:23)
[2025-01-02] MEDS ORDERED: PRED20 PO (14:23)
[2025-01-02] MEDS ORDERED: FURO40 PO (14:24)
[2025-01-02] MEDS ORDERED: JARDIANCE10 MG PO (14:24)
[2025-01-02] MEDS ORDERED: AMOCLA875 PO (14:24)
[2025-01-02 15:35] VITALS: BP 128/93
--- NOTE | 2025-01-02 16:37 | NUR ---
DISCHARGE REVIEWED DISCHARGE INSTRUCTIONS WITH PATIENT AND , BOTH VERBALIZED UNDERSTANDING, IV REMOVED, PT TRANSPORTED VIA WHEELCHAIR ON 2L O2 TO DISCHARGE IN PRIVATE VEHICLE WITH RESPONSIBLE GEOPOLITICS TEACHER @ [id number].
== END 2025-01-02 17:10 | disposition home or self-care (01) | DRG 193 ==
LOC: ER 15:53 → MEDS 19:33 → PCU 19:33 → MEDS 01-01 17:44
PROVIDERS: Internal Medicine; Nurse Practitioner Acute Care; Student in an Organized Health Care Education/Training Program; ADMIT Student in an Organized Health Care Education/Training Program
PROC: 3E03329 Introduction of Other Anti-infective into Peripheral Vein, Percutaneous Approach (ICD-10-PCS; principal; 2024-12-27)
PROC: 5A09357 Assistance with Respiratory Ventilation, Less than 24 Consecutive Hours, Continuous Positive Airway Pressure (ICD-10-PCS; 2024-12-27)
PROC: 4A033R1 Measurement of Arterial Saturation, Peripheral, Percutaneous Approach (ICD-10-PCS; 2024-12-27)
DX: J18.9 Pneumonia, unspecified organism (principal); I50.33 Acute on chronic diastolic (congestive) heart failure; J96.01 Acute respiratory failure with hypoxia; J44.0 Chronic obstructive pulmonary disease with (acute) lower respiratory infection; J44.1 Chronic obstructive pulmonary disease with (acute) exacerbation; E87.1 Hypo-osmolality and hyponatremia; G47.33 Obstructive sleep apnea (adult) (pediatric); E11.65 Type 2 diabetes mellitus with hyperglycemia; F15.10 Other stimulant abuse, uncomplicated; E78.00 Pure hypercholesterolemia, unspecified; I11.0 Hypertensive heart disease with heart failure; E88.09 Other disorders of plasma-protein metabolism, not elsewhere classified; T38.0X5A Adverse effect of glucocorticoids and synthetic analogues, initial encounter; Z95.3 Presence of xenogenic heart valve; Z79.84 Long term (current) use of oral hypoglycemic drugs; Z79.82 Long term (current) use of aspirin
CPT/HCPCS: 36415; 36600; 71046; 80048; 80053; 80069; 82803; 82947; 83605; 83735; 83880; 84145; 85025; 85027; 87040; 87449; 87637; 93005; 93010; 93306; 94640; 94660; 94664; 94761; 94762; 96361; 96374; 99285-25; A9270; J0456; J0696; J1650; J1815; J1938; J2405; J2919; J3360; J7030; J7050; J7060; J7512